=== PATIENT | male | born 1985 | race Caucasian/White ===

== ENCOUNTER 2020-08-23 14:33 | Emergency (ER) | payer MEDICAID, SELFPAY ==
[~2020-08-23] VITALS: Ht 175.3 cm; Wt 68.1 kg
[2020-08-23 17:12] VITALS: BP 129/73
[2020-08-23] MEDS ORDERED: DOXY-443 PO (17:12)
[2020-08-25 18:07] LABS: Lyme Disease IgG/IgM Antibodie <0.91 ISR (0.00-0.90); Lyme Disease IgM Ab Quantitati <0.80 index (0.00-0.79)
== END 2020-08-23 17:25 | disposition home or self-care (01) ==
LOC: M ED 14:33
DX: R22.41 Localized swelling, mass and lump, right lower limb (principal)

== ENCOUNTER → 2022-02-04 | Outpatient (CLI) | payer OTHER ==
[~2022-02-04] MED LIST: DOXY-443 PO
== END ==
LOC: M OUTALCOH 07:55
PROVIDERS: ATTEND Psychiatry & Neurology Psychiatry
DX: Z13.30 Encounter for screening examination for mental health and behavioral disorders, unspecified (principal)

== ENCOUNTER 2022-02-26 16:00 | Outpatient (RCR) | payer OTHER | END 2022-03-01 | LOC: M OUTALCOH 16:00 | PROVIDERS: ATTEND Psychiatry & Neurology Psychiatry | DX: F12.20 Cannabis dependence, uncomplicated (principal); F16.10 Hallucinogen abuse, uncomplicated ==

== ENCOUNTER 2022-03-26 16:00 | Outpatient (RCR) | payer OTHER | END 2022-04-01 | LOC: M OUTALCOH 16:00 | PROVIDERS: ATTEND Psychiatry & Neurology Psychiatry | DX: F12.20 Cannabis dependence, uncomplicated (principal); F16.10 Hallucinogen abuse, uncomplicated ==

== ENCOUNTER 2022-04-23 16:00 | Outpatient (RCR) | payer OTHER | END 2022-04-29 | LOC: M OUTALCOH 16:00 | PROVIDERS: ATTEND Psychiatry & Neurology Psychiatry | DX: F12.20 Cannabis dependence, uncomplicated (principal); F16.10 Hallucinogen abuse, uncomplicated ==

== ENCOUNTER 2022-05-26 13:00 | Outpatient (RCR) | payer OTHER | END 2022-05-30 | LOC: M OUTALCOH 13:00 | PROVIDERS: ATTEND Psychiatry & Neurology Psychiatry | DX: F12.20 Cannabis dependence, uncomplicated (principal); F16.10 Hallucinogen abuse, uncomplicated ==

== ENCOUNTER 2022-06-23 13:00 | Outpatient (RCR) | payer OTHER | END 2022-06-29 | LOC: M OUTALCOH 13:00 | PROVIDERS: ATTEND Psychiatry & Neurology Psychiatry | DX: F12.20 Cannabis dependence, uncomplicated (principal); F16.10 Hallucinogen abuse, uncomplicated ==

== ENCOUNTER 2022-07-07 13:08 | Outpatient (RCR) | payer OTHER | END 2022-07-30 | LOC: M OUTALCOH 13:08 | PROVIDERS: ATTEND Psychiatry & Neurology Psychiatry | DX: F12.20 Cannabis dependence, uncomplicated (principal); F16.10 Hallucinogen abuse, uncomplicated ==

== ENCOUNTER → 2023-06-29 | Outpatient (REF) | payer OTHER | LOC: M LAB REF 11:55 | PROVIDERS: ATTEND Physician Assistant Medical | DX: B34.9 Viral infection, unspecified (principal) ==

== ENCOUNTER → 2023-06-29 | Outpatient (CLI) | payer OTHER ==
[~2023-06-29] MED LIST changes: +DOXY-323 PO; -DOXY-443 PO
== END ==
LOC: M RAD 12:37
PROVIDERS: ATTEND Physician Assistant Medical
DX: M25.462 Effusion, left knee (principal)